=== PATIENT | female | born 1930 | race Caucasian/White ===

== ENCOUNTER 2016-12-15 10:10 | Day surgery (SDC) | payer MEDICARE, OTHER ==
[~2016-12-15] VITALS: Ht 175.3 cm; Wt 69.6 kg
[~2016-12-15 10:10] MED LIST: CENTTAB9 PO; DIGO0.25 PO; ECOT81TA2 PO; LEVO.15 PO; LISI-360 PO; PRAD150C PO; TOPR100T15 PO
[2016-12-15] MEDS ORDERED: HYDR12.57 PO (10:52)
[2016-12-15 10:55] VITALS: BP 152/77; PULSE 82; RESP 16; TEMP 97.6; O2SAT 96
[2016-12-15] MEDS ORDERED: INSULIN HUMAN REGULAR 1,000 UNITS/10 ML VIAL SQ PRN (11:00)
[2016-12-15] MEDS ORDERED: LACTATED RINGER'S 1000 ML IV SCH (11:00)
[2016-12-15] MEDS ORDERED: CHLORHEXIDINE GLUCONATE 2 % 1 PACK (2 CLOTHS) TOP SCH (11:00)
[2016-12-15] MEDS ORDERED: ceFAZolin 2 GM PREMIX 50 ML IV SCH (11:00)
[2016-12-15] MEDS ORDERED: SODIUM CHLORID 0.9% 500 ML IV SCH (11:00)
[2016-12-15] MEDS ORDERED: NS 1000 ML IV SCH (11:00)
[2016-12-15] MEDS ORDERED: POVIDONE IODINE 5% (ANTISEPSIS KIT) 4 APPLICATIONS EACH NARE SCH (11:00)
[2016-12-15] MEDS ORDERED: MUPIROCIN 2% OINT 1 APPLIC/GM SYR NASAL SCH (11:00)
[2016-12-15] MEDS ORDERED: NO Heparin, Lovenox, Coumadin at least 12 hours prior to procedure. XX PRN (11:00)
[2016-12-15] MEDS ORDERED: METOPROLOL TARTRATE 25 MG TAB PO PRN (11:00)
[2016-12-15] MEDS ORDERED: VANCOMYCIN 1000 MG/NS 250 ML IV SCH ×2 (11:00)
[2016-12-15 11:08] LABS: AUTOMATED NEUTROPHIL # 5.6 TH/MM3 (1.8-7.7); BASOPHIL # 0.1 TH/MM3 (0-0.2); BASOPHIL % 0.7 % (0.0-2.0); EOSINOPHIL # 0.2 TH/MM3 (0-0.4); EOSINOPHIL % 3.1 % (0.0-4.0); HEMATOCRIT 37.4 % (35.0-46.0); HEMO FLAGS DIFF FINAL; LYMPH % 16.4 % (9.0-44.0); LYMPHOCYTE # 1.3 TH/MM3 (1.0-4.8); MEAN CELL VOLUME 84.9 FL (80.0-100.0); MEAN CORPUSCULAR HEMOGLOBIN 29.1 PG (27.0-34.0); MEAN CORPUSCULAR HGB CONC 34.2 % (32.0-36.0); MONO % 6.6 % (0.0-8.0); NEUT % 73.2 % (16.0-70.0); PLATELET COUNT 164 TH/MM3 (150-450); RED BLOOD COUNT 4.41 MIL/MM3 (4.00-5.30); RED CELL DISTRIBUTION WIDTH 13.2 % (11.6-17.2); WHITE BLOOD COUNT 7.6 TH/MM3 (4.0-11.0)
[2016-12-15 11:18] LABS: APTT (PATIENT) 25.6 SEC (24.3-30.1); PROTHROMBIN TIME - PATIENT 10.5 SEC (9.8-11.6)
[2016-12-15 11:28] LABS: BICARBONATE 26.6 MEQ/L (21.0-32.0)
[2016-12-15 11:44] LABS: CALCIUM-PROTEIN CORRECTED 7.4 MG/DL (8.5-10.1)
[2016-12-15] MEDS ORDERED: VANCOMYCIN 500 MG VIAL ONE (13:43)
[2016-12-15] MEDS ORDERED: LIDOCAINE HCL 2% 50 ML VIAL ONE (13:43)
[2016-12-15] MEDS ORDERED: MIDAZOLAM HCL 2 MG/2 ML VIAL ONE (13:46)
[2016-12-15] MEDS ORDERED: PROPOFOL 200 MG/20 ML AMP IV ONE (16:29)
--- NOTE | 2016-12-15 17:13 | HHI.PR ---
Immediate Post Op Note Procedure Date: Dec 15, 2016 Pre Op Diagnosis: EOL ICD Post Op Diagnosis: NEW ICD Placement Surgeon: Florencio Veliz MD, [facility] [employer]er(s): none Procedure: ICD placement and testing Anesthesia: MAC Implant/Devices: SEE IMPLANT LOG (if applicable) Date/Time of Procedure: SEE SURGICAL CARE RECORD Florencio Veliz MD Dec 15, 2016 17:13
--- NOTE | 2016-12-15 17:30 | PD.CARD.PN ---
Subjective Subjective Remarks Stable after implant Objective Medications Current Medications Medications (Trade) Dose Ordered Sig/Yadi Route Start Time Stop Time Status Last Admin Lactated Ringer's 1,000 ml @ 30 mls/hr Q24H IV 12/15/16 11:00 (NS 500 ml Inj) 500 ml @ 30 mls/hr [id number] IV 12/15/16 11:00 12/16/16 10:59 Miscellaneous Information NO Heparin, Loven... UNSCH PRN XX 12/15/16 11:00 12/19/16 10:59 (NS 1000 ml Inj) 1,000 ml @ 30 mls/hr Q24H IV 12/15/16 11:00 Vital Signs / I&O Vital Signs Date Time Temp Pulse Resp B/P Pulse Ox O2 Delivery O2 Flow Rate FiO2 12/15/16 15:24 100 Room Air 12/15/16 10:55 97.6 82 16 152/77 96 Physical Exam GENERAL: SKIN: Warm and dry. HEAD: Normocephalic. EYES: No scleral icterus. No injection or drainage. NECK: Supple, trachea midline. No JVD or lymphadenopathy. CARDIOVASCULAR: Regular rate and rhythm without murmurs, gallops, or rubs. RESPIRATORY: Breath sounds equal bilaterally. No accessory muscle use. GASTROINTESTINAL: Abdomen soft, non-tender, nondistended. MUSCULOSKELETAL: No cyanosis, or edema. BACK: Nontender without obvious deformity. No CVA tenderness. Laboratory Laboratory Tests Test 12/15/16 10:45 White Blood Count 7.6 TH/MM3 Red Blood Count 4.41 MIL/MM3 Hemoglobin 12.8 GM/DL Hematocrit 37.4 % Mean Corpuscular Volume 84.9 FL Mean Corpuscular Hemoglobin 29.1 PG Mean Corpuscular Hemoglobin 34.2 % Concent Red Cell Distribution Width 13.2 % Platelet Count 164 TH/MM3 Mean Platelet Volume 9.1 FL Neutrophils (%) (Auto) 73.2 % Lymphocytes (%) (Auto) 16.4 % Monocytes (%) (Auto) 6.6 % Eosinophils (%) (Auto) 3.1 % Basophils (%) (Auto) 0.7 % Neutrophils # (Auto) 5.6 TH/MM3 Lymphocytes # (Auto) 1.3 TH/MM3 Monocytes # (Auto) 0.5 TH/MM3 Eosinophils # (Auto) 0.2 TH/MM3 Basophils # (Auto) 0.1 TH/MM3 CBC Comment DIFF FINAL Differential Comment Prothrombin Time 10.5 SEC Prothromb Time International 1.0 RATIO Ratio Activated Partial 25.6 SEC Thromboplast Time Sodium Level 142 MEQ/L Potassium Level 4.0 MEQ/L Chloride Level 108 MEQ/L Carbon Dioxide Level 26.6 MEQ/L Anion Gap 7 MEQ/L Blood Urea Nitrogen 26 MG/DL Creatinine 0.83 MG/DL Estimat Glomerular Filtration 65 ML/MIN Rate Random Glucose 110 MG/DL Calcium Level 7.4 MG/DL Protein Corrected Calcium 7.4 MG/DL Total Protein 7.2 GM/DL Assessment and Plan Problem List: (1) Atrial fibrillation (2) Cardiomyopathy (3) ICD (implantable cardioverter-defibrillator) battery depletion Assessment and Plan Discharge home later today. Problem Qualifiers (1) Atrial fibrillation: Qualified Code: I48.0 - Paroxysmal atrial fibrillation (2) Cardiomyopathy: Qualified Code: I42.0 - Dilated cardiomyopathy Florencio Veliz MD Dec 15, 2016 17:29
--- NOTE | 2016-12-16 10:46 | EKG ---
Date Performed: 12/15/2016 Time Performed: 11:06:36 PTAGE: 86 years EKG: Normal Sinus rhythm with P-wave synchronous ventricular pacing similiar to the old tracing. Abnormal ECG PREVIOUS TRACING : 08/19/2011 06.01 DOCTOR: Mustapha Hargrove Interpretating Date/Time 12/16/2016 10:45:35
--- NOTE | 2016-12-17 12:34 | MR ---
cc: ALTAGRACIA FAROOQ DATE 12/15/2016 INDICATIONS End of life Medtronic dual chamber biventricular defibrillator, non-ischemic cardiomyopathy, patient at maximum tolerated guideline directed medical therapy for over three months, [place] Heart Association Classification II, non-ischemic cardiomyopathy, EKG 100% paced, history of paroxysmal atrial fibrillation, last left ventricular ejection fraction 60%. PROCEDURE PERFORMED 1. Explantation of end of life Medtronic dual chamber biventricular defibrillator. 2. Placement of a new Medtronic dual chamber biventricular defibrillator. 3. Testing of Medtronic dual chamber biventricular defibrillator system. ACCESS SITE Left subclavicular area. EQUIPMENT USED: 1. GENERATOR: Medtronic Viva XT INVESTIGATOR WELFARE-D dual chamber defibrillator, serial number [id number]. 2. RIGHT ATRIAL LEAD: Medtronic model 4076, atrial lead serial number [id number] implanted 08/18/2011. 3. RIGHT VENTRICULAR LEAD: Medtronic model 6947, right ventricular lead, serial number [id number], implanted 08/18/2011. 4. LEFT VENTRICULAR LEAD: Medtronic model 4915, left ventricular lead serial number [id number], implanted 08/18/2011. LEAD TESTING 1. RIGHT ATRIAL LEAD: P-wave 2.0 millivolts, lead impedance 399 ohms, testing threshold 0.5 volts at 0.5 milliseconds. 2. RIGHT VENTRICULAR LEAD: R-wave 16.5 millivolts, lead impedance 608 ohms, pacing threshold 0.75 volts at 0.5 milliseconds. 3. LEFT VENTRICULAR LEAD: Lead impedance 418 ohms, pacing threshold 1.25 volts at 0.5 milliseconds. 4. Ventricular fibrillation was induced on one occasion and terminated with a single 20-joule shock with an impedance of 43 ohms resulting in sinus rhythm. ESTIMATED BLOOD LOSS Less than 20 cc. COMPLICATIONS None. DIAGNOSES 1. Successful replacement of end of life dual chamber biventricular defibrillator using new Medtronic dual chamber biventricular system. 2. Successful testing of Medtronic dual chamber biventricular system. 3. Defibrillation threshold of 20 joules or less. DISPOSITION We will continue current medical program. We will resume her anticoagulation. We will continue therapy for congestive heart failure. She will be discharged home later today. I will see her back for a wound check and chronic device reprogramming in our office within two weeks. MD MARYSE Bryant /3:22 PM /12:14 PM LARRY
== END 2016-12-15 18:52 | disposition home or self-care (01) ==
LOC: HDIC 10:10 → HDOC 10:10
PROVIDERS: ATTEND Internal Medicine Interventional Cardiology
DX: Z45.02 Encounter for adjustment and management of automatic implantable cardiac defibrillator (principal); I11.0 Hypertensive heart disease with heart failure; I50.9 Heart failure, unspecified; I65.29 Occlusion and stenosis of unspecified carotid artery; I08.1 Rheumatic disorders of both mitral and tricuspid valves; I48.0 Paroxysmal atrial fibrillation; I42.8 Other cardiomyopathies; R00.2 Palpitations; R53.83 Other fatigue; Z79.82 Long term (current) use of aspirin
CPT/HCPCS: 33264; 80048; 84155; 85025; 85610; 85730; 93005; 93641; C1882; J0690; J2250; J3010; J3370; J7050